=== PATIENT | female | born 1955 | race African-American/Black ===

== ENCOUNTER 2020-02-05 19:15 | Inpatient (IN) | payer MEDICARE ==
[~2020-02-05] VITALS: Ht 172.7 cm; Wt 55.5 kg
[2020-02-05 20:07] LABS: BASOPHILS 0 % (0-2); EOSINOPHILS 0 % (0-7); HEMATOCRIT 37.3 % (36.0-48.0); HEMOGLOBIN 12.1 g/dL (12-16); LYMPHOCYTES 21.5 % (15-50); MCH 28.5 pg (26.0-34.0); MCHC 32.4 g/dL (31.0-37.0); MCV 87.8 fL (80.0-100.0); MEAN PLATELET VOLUME 9.4 fL (7.4-10.4); MONOCYTES 4.7 % (2-11); NEUTROPHILS 73.8 % (40-80); RBC 4.25 10x6/uL (4.00-5.40); RDW 14.2 % (11.5-14.5)
[2020-02-05 20:09] LABS: PLATELET COUNT 32 10x3/uL (130-400)
[2020-02-05 20:30] LABS: PLATELET ESTIMATE DECREASED
[2020-02-05 20:34] LABS: ALBUMIN 2.3 g/dL (3.4-5.0); ANION GAP 24.9 mmol/L (8-16); BILIRUBIN - TOTAL 1.56 mg/dL (0.2-1.3); CALCIUM 7.5 mg/dL (8.5-10.1); CARBON DIOXIDE 17.1 mmol/L (21.0-32.0); CREATININE - SERUM 2.5 mg/dL (0.6-1.3); PROTEIN - SERUM 5.1 g/dL (6.4-8.2)
[2020-02-05 21:00] VITALS: BP 133/95
[2020-02-05 21:46] LABS: BACTERIA MANY /hpf (NEGATIVE); BILIRUBIN NEGATIVE (NEGATIVE); GLUCOSE 1000 mg/dL (NEGATIVE); KETONE NEGATIVE (NEGATIVE); NITRITE NEGATIVE (NEGATIVE); UROBILINOGEN NORMAL (NORMAL); WHITE CELLS - URINE OCC /hpf (NEGATIVE)
[2020-02-05 21:47] LABS: AMORPHOUS SEDIMENT >1+ /lpf (NONE SEEN)
[2020-02-05 22:00] VITALS: BP 149/93
[2020-02-05 23:04] VITALS: BP 147/98
--- NOTE | 2020-02-05 23:51 | NUR ---
PT HAS NOT ARIVED BUT MAKING NOTE TELE WAS ORDERED TO BE HELD BY HS
[2020-02-06] VITALS (22 sets, daily range): BP systolic 0–170; BP diastolic 33–124; Ht 172.7 cm; Wt 55.5 kg
--- NOTE | 2020-02-06 00:15 | NUR ---
TELEMETRY BEING HELD PENDING DECISION OF TRANSFER TO ICU.
--- NOTE | 2020-02-06 00:30 | NUR ---
PT WAS TO BE ADMITTED TO 2138. REPORT WAS CALLED TO [facility] ON [facility] II AT 0020. WENT TO RECHECK VS AND TRANSPORT PT. NOTED PT UNRESPONSIVE W/AGONAL RESPIRATIONS. DR. URBINA CONTACTED AND PT MOVED TO T3 FOR INTUBATION. NOTE THAT PT'S SKIN WAS VERY MOTTLED AND ABD WAS DISTENDED.
--- NOTE | 2020-02-06 02:30 | NUR ---
Received pt from ED to room 2310. Pt is intubated and has bilat wrist restriants. Attached to monitors, monitors are all on and working properly. No admission information is able to be obtained since there is no family present and pt is intubated at this time. No s/s of distress noted. Will continue to monitor.
--- NOTE | 2020-02-06 03:24 | NUR ---
TIME FOR INFUSIONS: NS 1000ML BOLUS INITIATED 2016 FINISHED 2116 1000ML INFUSED. LR 1000ML BOLUS INITIATED 2320 FINISHED 20 1000ML INFUSED. CALCIUM GLUCONATE 50ML INITIATED 2321 FINISHED 21 50ML INFUSED ZOSYN INITIATED 120 FINISHED 015. 2.25G INFUSED NS INFUSION OF 100ML/HR INITIATED 15 STOPPED 121. 110CC INFUSED NS W/150MEQ SODIUM BICARB INITIATED 012 CONTINUED TO ICU 0203. LEVOPHED 8MG/250ML INITIATED 0138 CONTINUED TO ICU AT 0203.
[2020-02-06 03:34] LABS: HEMATOCRIT 35.6 % (36.0-48.0); HEMOGLOBIN 9.9 g/dL (12-16); MCH 28.4 pg (26.0-34.0); MCHC 27.8 g/dL (31.0-37.0); RBC 3.49 10x6/uL (4.00-5.40); WBC 3.4 10x3/uL (4.8-10.8)
[2020-02-06 03:36] LABS: PLATELET COUNT 27 10x3/uL (130-400)
[2020-02-06 03:59] LABS: LYMPHOCYTES 23 % (15-50); MONOCYTES 3 % (2-11); NEUTROPHILS 74 % (40-80); PLATELET ESTIMATE DECREASED
[2020-02-06 04:00] LABS: BURR CELLS 3+; SCHISTOCYTES OCC
--- NOTE | 2020-02-06 04:30 | NUR ---
Pt started alarming with low heart rate. Entered pt's room and pt was sydnie on the monitor, initally pt still had a pulse present, then pulse dissappeared. Code tree called, see code blue sheet.
[2020-02-06 06:30] LABS: HEMOGLOBIN 9.6 g/dL (12-16)
[2020-02-06 06:32] LABS: PROTIME > 120.0 SECONDS (11.6-15.0)
[2020-02-06 06:33] LABS: APTT > 200.0 SECONDS (22.8-39.4)
[2020-02-06 06:34] LABS: % SATURATION 68 % (15-55); IRON 58 ug/dl (35-150); TOTAL IRON BIND CAPACITY 85 ug/dl (260-445)
[2020-02-06 06:35] LABS: UNSAT IRON BIND CAPACITY 27 ug/dl (150-375)
[2020-02-06 07:36] LABS: CALCIUM 8.3 mg/dL (8.5-10.1); CHLORIDE - SERUM 103 mmol/L (98-107); MAGNESIUM - SERUM 2.3 mg/dL (1.8-2.4); SODIUM 145 mmol/L (136-145)
[2020-02-06 07:53] LABS: CALC OSMOLALITY 309 mosm/kg (275-300); CARBON DIOXIDE 11.5 mmol/L (21.0-32.0); CREATININE - SERUM 3.2 mg/dL (0.6-1.3); FERRITIN 16886 ng/mL (3-244); GLUCOSE 291 mg/dL (74-106); UREA NITROGEN 41 mg/dL (7-18); eGFR NON AFRICAN AMERICAN 15 mL/min (90-120)
[2020-02-06 07:55] LABS: PHOSPHOROUS 12.7 mg/dL (2.5-4.9); POTASSIUM - SERUM 6.6 mmol/L (3.5-5.1)
[2020-02-06 08:25] LABS: BILIRUBIN - DIRECT 0.59 mg/dL (0.00-0.30); BILIRUBIN - INDIRECT 0.91 mg/dL (0.00-1.00); BILIRUBIN - TOTAL 1.5 mg/dL (0.2-1.3)
[2020-02-06 08:26] LABS: PROTEIN - SERUM 2.5 g/dL (6.4-8.2)
--- NOTE | 2020-02-06 10:37 | NUR ---
at 0700- report recieved. see assessment. vaso and levophed both infusing and maxed out.
--- NOTE | 2020-02-06 10:42 | NUR ---
0948- patient ryhthm noticed to be irregular. no pulse via dopler (groin). cpr started. code blue called. see code blue sheet
--- NOTE | 2020-02-06 14:07 | NUR ---
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
--- NOTE | 2020-02-06 14:07 | NUR ---
[facility] called.
--- NOTE | 2020-02-06 15:21 | NUR ---
HOME PICKED UP BODY
[2020-02-08 18:08] LABS: AEROBE ID Preliminary report (())
== END 2020-02-06 15:21 | DRG 871 ==
LOC: D.ER 19:15 → D.ICU 23:23 → D.M2 23:23 → D.ICU 23:24
PROVIDERS: Family Medicine; Internal Medicine Gastroenterology; ADMIT Internal Medicine Nephrology; ATTEND Internal Medicine Nephrology
PROC: 5A1935Z Respiratory Ventilation, Less than 24 Consecutive Hours (ICD-10-PCS; 2020-02-05)
PROC: 0BH17EZ Insertion of Endotracheal Airway into Trachea, Via Natural or Artificial Opening (ICD-10-PCS; 2020-02-05)
PROC: 05HM33Z Insertion of Infusion Device into Right Internal Jugular Vein, Percutaneous Approach (ICD-10-PCS; principal; 2020-02-06)
PROC: 05H533Z Insertion of Infusion Device into Right Subclavian Vein, Percutaneous Approach (ICD-10-PCS; 2020-02-06)
DX: A41.9 Sepsis, unspecified organism (principal); R65.21 Severe sepsis with septic shock; J96.01 Acute respiratory failure with hypoxia; E43 Unspecified severe protein-calorie malnutrition; K72.00 Acute and subacute hepatic failure without coma; D65 Disseminated intravascular coagulation [defibrination syndrome]; Z68.1 Body mass index [BMI] 19.9 or less, adult; E87.2 Acidosis; N39.0 Urinary tract infection, site not specified; N17.9 Acute kidney failure, unspecified; I46.9 Cardiac arrest, cause unspecified; E16.2 Hypoglycemia, unspecified; D69.6 Thrombocytopenia, unspecified